=== PATIENT | female | born 1990 | race Two or more races ===

== ENCOUNTER 2023-12-15 11:55 | Emergency (ER) | payer BC, SELFPAY ==
--- NOTE | ~2023-12-15 | XR_ITS ---
EXAMINATION: XR FOREARM, LEFT CLINICAL INFORMATION: Left forearm pain COMPARISON: None available. TECHNIQUE: AP and lateral views of the left forearm were obtained. FINDINGS: The bones and soft tissues are normal. No fracture. Imaged portions of the elbow and wrist are unremarkable. XR/XR forearm LT 2V IMPRESSION: Normal left forearm. Electronically signed by: Irena Jay MD 12/15/2023 02:28 PM EDT RP
--- NOTE | ~2023-12-15 | CT_ITS ---
EXAMINATION: CT HEAD WITHOUT CONTRAST CT CERVICAL SPINE WITHOUT CONTRAST CLINICAL INFORMATION: Fall. Pain. COMPARISON: None. TECHNIQUE: Imaging was performed from the skull base to vertex without intravenous administration of contrast. In addition, helical noncontrast CT imaging was acquired through the cervical spine and source images were reviewed along with axial reconstructions and sagittal and coronal MPRs. [This CT examination was performed using dose optimization techniques as appropriate, variously including the following: *Automated exposure control *Adjustment of mA and/or kV according to patient size (this includes techniques or standardized protocols for targeted exams where dose is matched to indication/reason for exam; i.e. extremities or head) *Use of iterative reconstruction technique] DLP: 1161 mGy-cm FINDINGS: HEAD: No intracranial mass, hemorrhage, or midline shift is visualized. The ventricles and sulci are proportional. Normal variant of cisterna magna. No extra-axial collections are identified. The paranasal sinuses and mastoid air cells are well aerated. CERVICAL SPINE: There is no evidence of acute cervical spine fracture. Vertebral bodies remain normal in height. Cervical vertebrae have normal alignment. Cervical disc heights are normal. Facet joints are normal. No pre- or paravertebral soft tissue abnormality is identified. Limited assessment of the lung apices is unremarkable. CT/CT cervical spine wo IV con IMPRESSION: 1. No acute intracranial pathology. 2. No CT evidence of acute cervical spine fracture or traumatic subluxation Electronically signed by: Gautam Bagley MD 12/15/2023 03:23 PM EDT
--- NOTE | ~2023-12-15 | XR_ITS ---
EXAMINATION: RIGHT ANKLE, RIGHT FOOT CLINICAL INFORMATION: Fall with pain COMPARISON: None available. TECHNIQUE: 3 views right ankle, 3 views right foot FINDINGS: There is bilateral soft tissue swelling. The ankle mortise appears stable. No ankle joint effusion is seen. No ankle fracture. In the foot, on a single oblique view there is a lucency extending through the cuboid extending from its proximal lateral surface into the fifth TMT joint. This is not seen on any other view. No other foot fractures are seen. XR/XR foot RT min 3V IMPRESSION: 1. Soft tissue swelling without ankle fracture. 2. Question of a nondisplaced cuboid fracture. Please correlate with the site of pain. Electronically signed by: Anthony White MD 12/15/2023 01:40 PM EDT
--- NOTE | ~2023-12-15 | XR_ITS ---
EXAMINATION: XR HUMERUS, LEFT CLINICAL INFORMATION: Left biceps pain COMPARISON: None available. TECHNIQUE: AP and lateral views of the left humerus. FINDINGS: The bones and soft tissues are normal. No fracture. Imaged portions of the shoulder and elbow are unremarkable. XR/XR humerus LT IMPRESSION: Normal left humerus. Electronically signed by: Irena Jay MD 12/15/2023 02:29 PM EDT RP
--- NOTE | ~2023-12-15 | CT_ITS ---
EXAMINATION: CT HEAD WITHOUT CONTRAST CT CERVICAL SPINE WITHOUT CONTRAST CLINICAL INFORMATION: Fall. Pain. COMPARISON: None. TECHNIQUE: Imaging was performed from the skull base to vertex without intravenous administration of contrast. In addition, helical noncontrast CT imaging was acquired through the cervical spine and source images were reviewed along with axial reconstructions and sagittal and coronal MPRs. [This CT examination was performed using dose optimization techniques as appropriate, variously including the following: *Automated exposure control *Adjustment of mA and/or kV according to patient size (this includes techniques or standardized protocols for targeted exams where dose is matched to indication/reason for exam; i.e. extremities or head) *Use of iterative reconstruction technique] DLP: 1161 mGy-cm FINDINGS: HEAD: No intracranial mass, hemorrhage, or midline shift is visualized. The ventricles and sulci are proportional. Normal variant of cisterna magna. No extra-axial collections are identified. The paranasal sinuses and mastoid air cells are well aerated. CERVICAL SPINE: There is no evidence of acute cervical spine fracture. Vertebral bodies remain normal in height. Cervical vertebrae have normal alignment. Cervical disc heights are normal. Facet joints are normal. No pre- or paravertebral soft tissue abnormality is identified. Limited assessment of the lung apices is unremarkable. CT/CT head/brain wo IV con IMPRESSION: 1. No acute intracranial pathology. 2. No CT evidence of acute cervical spine fracture or traumatic subluxation Electronically signed by: Gautam Bagley MD 12/15/2023 03:23 PM EDT
--- NOTE | ~2023-12-15 | XR_ITS ---
EXAMINATION: RIGHT ANKLE, RIGHT FOOT CLINICAL INFORMATION: Fall with pain COMPARISON: None available. TECHNIQUE: 3 views right ankle, 3 views right foot FINDINGS: There is bilateral soft tissue swelling. The ankle mortise appears stable. No ankle joint effusion is seen. No ankle fracture. In the foot, on a single oblique view there is a lucency extending through the cuboid extending from its proximal lateral surface into the fifth TMT joint. This is not seen on any other view. No other foot fractures are seen. XR/XR ankle RT min 3V IMPRESSION: 1. Soft tissue swelling without ankle fracture. 2. Question of a nondisplaced cuboid fracture. Please correlate with the site of pain. Electronically signed by: Anthony White MD 12/15/2023 01:40 PM EDT
[2023-12-15 12:02] VITALS: BP 139/86; PULSE 80; RESP 16; TEMP 36.2; O2SAT 100; BMI 43.6
--- NOTE | 2023-12-15 12:03 | ED_ITS ---
HPI - Fall General Chief Complaint: Fall Stated Complaint: Head injury, leg injury Time Seen by Provider: 12/15/23 12:18 Source: patient Mode of arrival: ambulatory Limitations: no limitations History of Present Illness ED Provider: Melecio Hudson PA-C HPI Narrative: 33-year-old female presents to the ED for right foot pain, headache, and left humerus/forearm pain. Patient states yesterday she fell down 3 stairs since then has had headache and right foot pain and left humerus pain. Patient denies loss of consciousness. Patient denies any nausea, vomiting, chest pain, shortness of breath, abdominal pain, rectal bleeding, or blood in urine. 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 Related Data Allergies Allergy/AdvReac Type Severity Reaction Status Date / Time No Known Allergies Allergy Verified 12/15/23 12:06 Review of Systems 2 Review of Systems: Right foot, headache, left humerus pain Yes all other systems are reviewed and are negative PMFSH Social History Social History Advance Directives: No Advance Directives Information Provided: No Do you have a plan to hurt others: No Plan Physical Exam 2 Vital Signs: Vital Signs: Last Vital Signs Temp 97.2 F 12/15/23 15:25 Pulse 52 12/15/23 15:25 Resp 16 12/15/23 15:25 BP 121/64 12/15/23 15:25 Pulse Ox 100 12/15/23 15:25 O2 Del Method Room Air 12/15/23 15:25 BMI result Body Mass Index 43.6 Const: General: cooperative, healthy appearing, comfortable, no acute distress, well developed, alert, awake and Physically active O rientation/consciousness: patient oriented x3 HEENT: Head: Yes normal to inspection, Yes No palpable skull fracture present, Yes normocephalic, Yes atraumatic and No abrasion Ears: hearing grossly normal bilaterally, external ears normal, TM's normal bilaterally, TM normal on the right, TM normal on the left, EAC's normal, mastoids normal and no periauricular adenopathy Eyes: General: appearance normal, both eyes and all related structures Neck: Neck: Yes normal visual inspection, Yes full ROM, Yes no lymphadenopathy, Yes no meningeal signs, Yes trachea midline, Yes supple, No anterior neck swelling and No tender Chest: Chest palpation & inspection: normal inspection of the chest and normal palpation of entire chest wall Resp: Effort & Inspection: normal respiratory effort and able to speak in complete sentences Auscultation: clear to auscultation bilaterally Cardio: Jugular venous distension: no JVD Heart sounds: S1 normal heart sound present and S2 normal heart sound present GI: Inspection: Yes normal to inspection Palpation (GI): Soft to palpation, not firm, nontender, no guarding and not rigid : General: Yes no CVA tenderness Back/Spine/Pelvis: Back: no CVA tenderness and No back tenderness Skin: General skin exam: no rashes or lesions noted, elasticity normal and turgor normal Neuro: General: patient oriented x3, gait normal, tone normal, moves all extremities, Normal light touch and pain sensation, no meningeal signs, no focal motor deficits, CN's II-XI intact bilaterally and normal sensation to monofilament Extrem: General: Yes normal to inspection, Yes full ROM and Yes capillary refill normal Shoulder/upper arm images: 1. Positive for tenderness on palpation. Negative crepitus, ecchymosis, deformity, or erythema. Motor/neuro/vascular exam intact. 2. Positive for tenderness on palpation. Negative crepitus, ecchymosis, deformity, or erythema. Motor/neuro/vascular exam intact. Ankle/foot/toe images: 1. Positive for tenderness on palpation. Negative for crepitus, ecchymosis, or deformity. negative erythema. Vascular motor neuro exam intact. Rest of extremity normal. Psych: Appearance: grossly normal, well kempt and not disheveled Course Course Course Narrative: This is a Rapid Medical Exam performed in triage by Lakia Rushing PA-C. Full HPI, ROS and PE to be performed by primary ED provider. 33 yo F presenting to the ED c/o headache, foot swelling s/p trip & fall down 4 stairs last night w/+head strike. denies sx prior to fall. denies LOC or taking AC, N/V PE: ambulating w/limping gait. no cervical midline ttp. No focal neuro deficits, + right foot with mild ecchymosis and 4/5 metatarsal tenderness. Ankle nontender. Plan: CT, x-ray Medications Administered Discontinued Medications Generic Name Dose Route Start Last Admin Trade Name Freq PRN Reason Stop Dose Admin Acetaminophen 975 mg 12/15/23 14:06 12/15/23 14:10 Acetaminophen 325 Mg Tablet PO 12/15/23 14:07 975 mg ONCE ONE Administration Medical Decision Making Medical Decision Making MDM Narrative: 33-year-old female presents for right ankle, left shoulder left forearm and headache since yesterday after falling down 3 stairs. Patient hit her head on the stairs. Patient denied any loss of consciousness. Patient is sent for imaging waiting for results. 3;!4pm: Patient's sign out against medical advice without reading of CT scan of head and neck. Patient explained worrisome signs of risks including patient was still signed out against medical advice. Patient is placed in foot boot and crutches 6:48pm: Patient called went straight to voicemail and message was left. CT scan images are normal. Differential Diagnosis Differential Diagnoses: The differential diagnosis associated with the presentation includes (Foot fracture, elbow humerus fracture, brain bleed, skull fracture, neck fracture) Admission/Observation Consideration of admission/observation: Escalation of care including admission/observation considered Independent Interpretation I performed an independent interpretation of an: Plain X-Ray and CT Scan Radiology Impression Discussion of test interpretation with radiology: I have reviewed the radiologist's reading. Independent Historian Clinical information obtained from an independent historian. History obtained from or confirmed by: Other (patient) External Record Review External record reviewed: Other (prior visits) Prescription Management I considered prescription management with: Pain Medication Discharge Plan Discharge Clinical Impression: Foot fracture, Head injury Patient Disposition: Left Against Medical Advice Instructions: Foot Fracture in Adults (ED), Head Injury (ED) Additional Instructions: X-ray shows you have a possible foot fracture will need follow up with the orthopedic surgeon. You are leaving before results of head CT scan or cervical spine CT scan. Return to the ED immediately for any headache, nausea, vomiting, dizziness, chills, slurred speech, facial droop, paralysis of extremities, severe foot pain, for swelling, redness, calf pain, chest pain, shortness of breath, or any other concerning symptoms. Recommend follow up with primary care provider and orthopedic surgeon. [id number] Tylenol or Motrin can be used pain control XR/XR foot RT min 3V IMPRESSION: 1. Soft tissue swelling without ankle fracture. 2. Question of a nondisplaced cuboid fracture. Please correlate with the site of pain. Electronically signed by: Anthony White MD 12/15/2023 01:40 PM EDT RP Ref[place]: [facility] [place] Group] (Possible right cuboid foot fracture) Stand Alone Forms: Against Medical Advice, Work/School Release Interventions: ED Discharge Assessment Last Done: 12/15/23 15:25 Discharge Date/Time: 12/15/23 15:26 Print Language: [place]
[2023-12-15] MEDS: Acetaminophen 325 MG TABLET 975 MG PO (14:10)
[2023-12-15 14:29] VITALS: BP 121/64; PULSE 52; RESP 16; TEMP 36.2; O2SAT 100
[2023-12-15 15:25] VITALS: BP 121/64; PULSE 52; RESP 16; TEMP 36.2; O2SAT 100
== END 2023-12-15 15:26 | disposition left against medical advice (07) ==
PROVIDERS: Emergency Provider Emergency Medicine
DX: S92.901A Unspecified fracture of right foot, initial encounter for closed fracture (principal); S09.90XA Unspecified injury of head, initial encounter; M54.2 Cervicalgia; R51.9 Headache, unspecified; M25.571 Pain in right ankle and joints of right foot; M79.602 Pain in left arm; R26.81 Unsteadiness on feet; Y93.9 Activity, unspecified; Y92.9 Unspecified place or not applicable; Y99.9 Unspecified external cause status
CPT/HCPCS: 10120; 70450; 72125; 73060; 73090; 73610; 73630; 99284